=== PATIENT | female | born 1985 | race Caucasian/White ===

== ENCOUNTER 2017-07-09 10:48 | Emergency (ER) | payer BC ==
[2017-07-09] MEDS ORDERED: Ondansetron INJ* 2 MG/ML VIAL IV ONE (11:57)
[2017-07-09] MEDS ORDERED: NS 0.9% 1000 ML* 1,000 ML IV ONE (11:57)
[2017-07-09 12:51] LABS: Hematocrit 35 % (35-47); Hemoglobin 11.6 g/dl (12.0-16.0); Mean Corpuscular HGB Conc 33 g/dl (31-36); Mean Corpuscular Hemoglobin 26 pg (27-31); Mean Corpuscular Volume 77 fL (80-97); Mean Platelet Volume 7 um3 (7.4-10.4); Red Blood Count 4.53 10^6/ul (4.0-5.4); Red Cell Distribution Width 14 % (10.5-15); White Blood Count 7.2 10^3/ul (3.5-10.8)
[2017-07-09 13:12] LABS: ALT 13 U/L (7-52); AST 17 U/L (13-39); Albumin 4.1 g/dL (3.2-5.2); Alkaline Phosphatase 33 U/L (34-104); Anion Gap 12 mmol/L (2-11); BUN/Creatinine Ratio 8.3 (8-20); Blood Urea Nitrogen 6 mg/dL (6-24); C Reactive Protein < 1.00 mg/L (< 5.00); CO2 Carbon Dioxide 23 mmol/L (22-32); Calcium 8.9 mg/dL (8.6-10.3); Chloride 96 mmol/L (101-111); EGFR African American 123.2 (>60); EGFR Non-African American 95.8 (>60); Glucose 92 mg/dL (70-100); Lipase 19 U/L (11.0-82.0); Potassium 3.6 mmol/L (3.5-5.0); Sodium 131 mmol/L (133-145); Total Protein 6.1 g/dL (6.4-8.9)
[2017-07-09 13:23] LABS: Alcohol < 10 mg/dL (<10)
[2017-07-09] MEDS ORDERED: Acetaminophen TAB* 325 MG PO ONE (13:23)
[2017-07-09 13:48] LABS: Urine Bacteria Absent (Absent); Urine Bilirubin Negative (Negative); Urine Glucose Negative (Negative); Urine Nitrite Negative (Negative)
[2017-07-09 13:53] LABS: Benzodiazepine Urine Screen None Detected (None Detect)
[2017-07-09 14:42] VITALS: BP 126/59
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
== END 2017-07-09 14:42 | disposition home or self-care (01) ==
LOC: ED 10:48
DX: R53.81 Other malaise (principal); F43.9 Reaction to severe stress, unspecified; R50.9 Fever, unspecified; R11.0 Nausea; R55 Syncope and collapse; Z32.02 Encounter for pregnancy test, result negative
CPT/HCPCS: 36415; 80053; 80307; 80320; 81003; 81015; 83690; 84702; 85025; 86140; 87086; 93005; 99282; G0480